=== PATIENT | female | born 1960 | race Caucasian/White ===

== ENCOUNTER 2016-06-15 15:16 | Emergency (ER) | payer BC ==
--- NOTE | 2016-06-15 15:25 | PDOC ---
*Physical Exam - Physical Exam Comments: 06/15/16 15:23 VSS Chest: anterior displacement of medial R clavicle with some surrounding rubor and ttp. no focal bony deformity or step off along the clavicle. slightly Limited R shoulder abduction 2/2 pain, otherwise ROM intact, nvi ED Treatment Course - RADIOLOGY Radiology Studies Ordered: Category Date Time Status CLAVICLE-RIGHT SIDE [RAD] Stat Radiology 06/15/16 15:21 Ordered SHOULDER-RIGHT [RAD] Stat Radiology 06/15/16 15:21 Ordered Medical Decision Making - Medical Decision Making 06/15/16 15:21 55y/o F p/w pain and swelling/deformity to medial aspect R clavicle at sternoclavicular junction. Pt had strain 2d ago while walking her dogs, no direct trauma or fall. Discomfort since then without sensory or vascular compromise. Pain with abduction of R shoulder and palpation. no cardiopulmonary complaints. Concern for anterior sternoclavicular dislocation without neurovascular compromise R clavicle and R shoulder xray avoids nsaids 2/2 PUD history ortho consult 06/15/16 16:02 on prelim review, likely anterior displacement of medial R clavicle on angled view. Given no neurovascular compromise, opt for urgent f/u with orthopedics. Placed in sling, comfort care, ortho f/u. *DC/Admit/Observation/Transfer Diagnosis at time of Disposition: Subluxation of sternoclavicular joint Qualifiers: Encounter type: initial encounter Laterality: right Qualified Code(s): S43.201A - Unspecified subluxation of right sternoclavicular joint, initial encounter - Discharge Dispostion Disposition: HOME Condition at time of disposition: Stable - Referrals Referrals: Bryan Marquis MD [Primary Care Provider] - Moe Britt MD [Staff Physician] - - Patient Instructions Additional Instructions: Sling as instructed. Activity as tolerated. Tylenol as needed for pain. You will need to see an orthopedic surgeon for further management and likely reduction of the dislocation. Consider calling Dr. Britt for an appointment. Return to the ER for any intolerable pain, severe swelling, arm numbness/ tingling/pain/discoloration, facial swelling, shortness of breath.
[2016-06-15 15:32] VITALS: BP 135/73; PULSE 71; TEMP 97.7; BMI 26.4
== END 2016-06-15 16:09 | disposition home or self-care (01) ==
LOC: JERFT 15:16 → JER 15:16 → JERFT 16:09
DX: S43.211A Anterior subluxation of right sternoclavicular joint, initial encounter (principal); X50.0XXA Overexertion from strenuous movement or load, initial encounter; Y93.K1 Activity, walking an animal; Y92.89 Other specified places as the place of occurrence of the external cause; Y99.9 Unspecified external cause status
CPT/HCPCS: 73000-TC-RT; 73030-TC-RT; 99281-25